=== PATIENT | female | born 1970 | race Caucasian/White ===

== ENCOUNTER → 2017-04-20 | Outpatient (CLI) | payer BC ==
--- NOTE | 2017-04-23 10:40 | MM ---
Reason for exam: screening (asymptomatic). Last mammogram was performed 1 year and 2 months ago. History: Benign right mammotome panel of the right breast, February 10, 2011. Taking estrogen beginning at age 43. Physical Findings: A clinical breast exam by your physician is recommended on an annual basis and results should be correlated with mammographic findings. MG 3D Screening Mammo W/Cad Bilateral CC and MLO view(s) were taken. Prior study comparison: February 08, 2016, bilateral MG 3d screening mammo w/cad. February 05, 2015, bilateral MG screening mammo w CAD. The breast tissue is heterogeneously dense. This may lower the sensitivity of mammography. Previous mammotome biopsy in the right breast. There is no discrete abnormality. ASSESSMENT: Benign, BI-RAD 2 RECOMMENDATION: Routine screening mammogram of both breasts in 1 year.
== END | disposition home or self-care (01) ==
LOC: RADMAMWWP 07:21
PROVIDERS: ATTEND Obstetrics & Gynecology
DX: Z12.31 Encounter for screening mammogram for malignant neoplasm of breast (principal)
CPT/HCPCS: 77063; 77067

== ENCOUNTER → 2018-04-22 | Outpatient (CLI) | payer BC ==
--- NOTE | 2018-04-23 11:21 | MM ---
Reason for exam: screening (asymptomatic). Last mammogram was performed 1 year ago. History: Benign right mammotome panel of the right breast, February 10, 2011. Taking estrogen beginning at age 43. Physical Findings: A clinical breast exam by your physician is recommended on an annual basis and results should be correlated with mammographic findings. MG 3D Screening Mammo W/Cad Bilateral CC and MLO view(s) were taken. Prior study comparison: April 20, 2017, bilateral MG 3d screening mammo w/cad. February 08, 2016, bilateral MG 3d screening mammo w/cad. The breast tissue is heterogeneously dense. This may lower the sensitivity of mammography. Finding: There is a 6 mm indistinct oval mass in the anterior, middle, central position of the right breast on CC 37/68 possibly MLO 41/70. Previous mammotome biopsy in the right breast. There is a chronic nodularity in the right breast. New finding, increase in size, and more defined since April 20, 2017 and February 08, 2016. ASSESSMENT: Incomplete: need additional imaging evaluation, BI-RAD 0 RECOMMENDATION: Special view mammogram of the right breast. If lesion persists on supplemental views, image directed ultrasound is recommended. [facility] will attempt to contact patient to return for supplemental views and ultrasound if indicated.
== END ==
LOC: RADMAMWWP 07:55
PROVIDERS: ATTEND Obstetrics & Gynecology
DX: Z12.31 Encounter for screening mammogram for malignant neoplasm of breast (principal)
CPT/HCPCS: 77063; 77067

== ENCOUNTER → 2018-04-24 | Outpatient (CLI) | payer BC ==
--- NOTE | 2018-04-25 08:27 | MM ---
Reason for exam: additional evaluation requested from abnormal screening. Last mammogram was performed less than 1 month ago. History: Benign right mammotome panel of the right breast, February 10, 2011. Taking estrogen beginning at age 43. Physical Findings: Nurse Summary: nodule in the right breast at 7-8 o'clock (nurse hussain). MG 3D Work Up W/Cad RT Spot compression CC with magnification, spot compression MLO, and ML view(s) were taken of the right breast. Prior study comparison: April 22, 2018, bilateral MG 3d screening mammo w/cad. April 20, 2017, bilateral MG 3d screening mammo w/cad. Finding: There is a 6 mm circumscribed oval mass in the right breast. These results were verbally communicated with the patient and result sheet given to the patient on 04/24/18. ASSESSMENT: Incomplete: need additional imaging evaluation, BI-RAD 0 RECOMMENDATION: Ultrasound of the right breast. (entire lesion, palpable by nurse, dense tissue)
--- NOTE | 2018-04-25 08:29 | USB ---
Reason for exam: additional evaluation requested from abnormal screening. History: Benign right mammotome panel of the right breast, February 10, 2011. Taking estrogen beginning at age 43. US Breast Workup RT Right complete breast ultrasound includes all four quadrants, the retroareolar region and axilla. Finding demonstrates a 4 x 3 x 3mm lesion too small to characterize at 12 o'clock. These results were verbally communicated with the patient and result sheet given to the patient on 04/24/18. ASSESSMENT: Probably benign, BI-RAD 3 RECOMMENDATION: Follow-up diagnostic mammogram and ultrasound of the right breast in 6 months.
== END | disposition home or self-care (01) ==
LOC: RADMAMWWP 12:48
PROVIDERS: ATTEND Obstetrics & Gynecology
DX: R92.8 Other abnormal and inconclusive findings on diagnostic imaging of breast (principal)
CPT/HCPCS: 77061; 77065

== ENCOUNTER → 2018-05-01 | Day surgery (SDC) | payer BC ==
[2018-05-01 13:22] VITALS: RESP 16; TEMP 99.2; BMI 28.9
--- NOTE | 2018-05-01 15:00 | USB ---
EXAMINATION TYPE: US biopsy breast VAD RT, MG diagnostic mammo RT wo CAD DATE OF EXAM: 05/01/2018 CLINICAL HISTORY: N63 Breast Lump mass. TECHNIQUE: Ultrasound guided core biopsy of the right breast. COMPARISON: Exams dating back to 02/08/2016 FINDINGS: The procedure of ultrasound guided core biopsy was explained to the patient. Benefits, alt ernatives, and risks were discussed. An informed consent was then obtained. Preprocedural timeout w as performed. The patient was placed in supine positioning for imaging and for the procedure. The overlying skin wa s prepped and draped in usual sterile fashion. 10 cc of lidocaine buffered with bicarbonate was used as anesthetic into the skin and subcutaneous tissue up to the 0.5 x 0.2 x 0.6 cm mass at the 12:00 po sition in the right breast. Under ultrasound guidance, a 12-gauge vacuum assisted biopsy gun device inserted. After the biopsy de vice was inserted through the mass the cyst collapsed. The biopsy device was used to obtain 3 core sa mples. Following this, a coil-shaped biopsy marker was left at the location of biopsy. Postprocedur al mammograms demonstrate concordant with placement of a mammographic mass. The patient tolerated the procedure well without any immediate complication. The patient was kept in the radiology department for short stay after the procedure and then discharged home in stable condi tion. IMPRESSION: Successful, uncomplicated ultrasound guided core biopsy of a 6 mm mass at the 12:00 posit ion in the right breast with collapse of the mass on biopsy representing a cyst, full pathology resul ts to follow.
[2018-05-01 15:08] VITALS: BP 135/82; PULSE 64
== END ==
LOC: RADUSWWP 13:02
PROVIDERS: ATTEND Internal Medicine
DX: N60.31 Fibrosclerosis of right breast (principal)
CPT/HCPCS: 77065; 19083; A4648; J2001; 88305

== ENCOUNTER → 2019-09-15 | Outpatient (CLI) | payer BC ==
--- NOTE | 2019-09-19 07:56 | MM ---
Reason for exam: additional evaluation requested from prior study. Last mammogram was performed 1 year and 4 months ago. History: Benign US biopsy breast VAD RT of the right breast, May 01, 2018. Benign right mammotome panel of the right breast, February 10, 2011. Taking estrogen beginning at age 43. Physical Findings: Nurse did not find any significant physical abnormalities on exam. MG 3D Diag Mammo W/Cad BETSY Bilateral CC and MLO view(s) were taken. Prior study comparison: May 01, 2018, right breast MG diagnostic mammo RT wo CAD. April 24, 2018, right breast MG 3d work up w/cad RT. There is no discrete abnormality. No significant new findings when compared with previous films. These results were verbally communicated with the patient and result sheet given to the patient on 09/15/19. ASSESSMENT: Benign, BI-RAD 2 RECOMMENDATION: Routine screening mammogram of both breasts in 1 year.
--- NOTE | 2019-09-19 07:57 | USB ---
Reason for exam: follow-up at short interval from prior study. History: Benign US biopsy breast VAD RT of the right breast, May 01, 2018. Benign right mammotome panel of the right breast, February 10, 2011. Taking estrogen beginning at age 43. US Breast RT Right complete breast ultrasound includes all four quadrants, the retroareolar region and axilla. Finding demonstrates a 2 x 2 x 3mm cystic lesion at 2 o'clock. These results were verbally communicated with the patient and result sheet given to the patient on 09/15/19. ASSESSMENT: Benign, BI-RAD 2 RECOMMENDATION: Routine screening mammogram of both breasts in 1 year.
== END | disposition home or self-care (01) ==
LOC: RADMAMWWP 07:04
PROVIDERS: ATTEND Obstetrics & Gynecology
DX: R92.8 Other abnormal and inconclusive findings on diagnostic imaging of breast (principal)
CPT/HCPCS: 77062; 77066

== ENCOUNTER → 2021-02-11 | Outpatient (CLI) | payer BC ==
[2021-02-11 10:26] LABS: HCT 39.6 % (37.2-46.3); MCH 29.7 pg (27.0-32.0); MCHC 32.8 g/dL (32.0-37.0); MCV 90.6 fL (80.0-97.0); Mean Platelet Volume 11.5 fL (9.5-12.2); Platelet Count 236 X 10*3/uL (140-440); RBC 4.37 X 10*6/uL (4.10-5.20); RDW 12.5 % (11.5-14.5); WBC 9.93 X 10*3/uL (4.50-10.00)
[2021-02-11 11:19] LABS: ALT 26 U/L (8-44); AST 22 U/L (13-35); African American GFR (CKD) 108.8 (60.0-200.0); Albumin 4.4 g/dL (3.8-4.9); Albumin/Globulin Ratio 1.81 (1.60-3.17); Alkaline Phosphatase 89 U/L (41-126); BUN/Creat Ratio 11.05 Ratio (12.00-20.00); Blood Urea Nitrogen 8.2 mg/dL (9.0-27.0); Calcium 9.7 mg/dL (8.7-10.3); Chloride 100 mmol/L (96-109); Chol/HDL Ratio 4.07 Ratio; Globulin 2.4 g/dL (1.6-3.3); Glucose 154 mg/dL (70-110); LDL Cholesterol,Calculated 106.4 mg/dL (0.0-131.0); Non-African American GFR(CKD) 93.9 (60.0-200.0); Potassium 4.6 mmol/L (3.5-5.5); Sodium 137 mmol/L (135-145); Total Protein 6.8 g/dL (6.2-8.2); VLDL Calculation 15.76 mg/dL (5.00-40.00)
== END | disposition home or self-care (01) ==
LOC: LABWHC1 08:15
PROVIDERS: ATTEND Internal Medicine
DX: Z00.00 Encounter for general adult medical examination without abnormal findings (principal); E11.9 Type 2 diabetes mellitus without complications; E03.9 Hypothyroidism, unspecified
CPT/HCPCS: 36415; 80053; 80061; 83036; 84443; 85027

== ENCOUNTER → 2021-03-17 | Outpatient (CLI) | payer BC ==
--- NOTE | 2021-03-18 10:58 | MM ---
Reason for exam: screening (asymptomatic). Last mammogram was performed 1 year and 6 months ago. History: Benign US biopsy breast VAD RT of the right breast, May 01, 2018. Benign right mammotome panel of the right breast, February 10, 2011. Taking estrogen beginning at age 43. Physical Findings: A clinical breast exam by your physician is recommended on an annual basis and results should be correlated with mammographic findings. MG 3D Screening Mammo W/Cad Bilateral CC and MLO view(s) were taken. XCCL view(s) were taken of the right breast. Prior study comparison: September 15, 2019, bilateral MG 3d diag mammo w/cad BETSY. May 01, 2018, right breast MG diagnostic mammo RT wo CAD. The breast tissue is heterogeneously dense. This may lower the sensitivity of mammography. Previous mammotome biopsy in the right breast. No significant changes when compared with prior studies. ASSESSMENT: Benign, BI-RAD 2 RECOMMENDATION: Routine screening mammogram of both breasts in 1 year.
== END | disposition home or self-care (01) ==
LOC: RADMAMWWP 16:41
PROVIDERS: ATTEND Obstetrics & Gynecology
DX: Z12.31 Encounter for screening mammogram for malignant neoplasm of breast (principal)
CPT/HCPCS: 77063; 77067

== ENCOUNTER → 2021-06-01 | Outpatient (CLI) | payer BC ==
[2021-06-01 14:40] LABS: HCT 39.1 % (37.2-46.3); HGB 12.7 g/dL (12.0-15.0); MCH 29.3 pg (27.0-32.0); MCHC 32.5 g/dL (32.0-37.0); MCV 90.3 fL (80.0-97.0); Mean Platelet Volume 12.1 fL (9.5-12.2); NRBC Per 100 WBC 0 /100 WBCS (0.0-0.0); Platelet Count 222 X 10*3/uL (140-440); RBC 4.33 X 10*6/uL (4.10-5.20); RDW 12.5 % (11.5-14.5); WBC 7.25 X 10*3/uL (4.50-10.00)
[2021-06-01 15:00] LABS: ALT 30 U/L (8-44); AST 25 U/L (13-35); Albumin 4.3 g/dL (3.8-4.9); Albumin/Globulin Ratio 1.62 (1.60-3.17); Alkaline Phosphatase 83 U/L (41-126); BUN/Creat Ratio 16.87 Ratio (12.00-20.00); Blood Urea Nitrogen 11.3 mg/dL (9.0-27.0); Calcium 9.7 mg/dL (8.7-10.3); Carbon Dioxide 22.6 mmol/L (20.0-27.5); Chloride 103 mmol/L (96-109); Chol/HDL Ratio 4.01 Ratio; Globulin 2.7 g/dL (1.6-3.3); Glucose 106 mg/dL (70-110); LDL Cholesterol,Calculated 114.8 mg/dL (0.0-131.0); Non-African American GFR(CKD) 101.8 (60.0-200.0); Potassium 4.3 mmol/L (3.5-5.5); Sodium 139 mmol/L (135-145); Total Protein 6.9 g/dL (6.2-8.2); VLDL Calculation 12.12 mg/dL (5.00-40.00)
[2021-06-01 21:41] LABS: Urine Creatinine 38.4 mg/dL (28.0-217.0)
== END | disposition home or self-care (01) ==
LOC: LABWHC1 08:22
PROVIDERS: ATTEND Internal Medicine
DX: E11.9 Type 2 diabetes mellitus without complications (principal); E03.9 Hypothyroidism, unspecified
CPT/HCPCS: 36415; 80053; 80061; 82043; 82570; 83036; 84443; 85027

== ENCOUNTER → 2022-05-30 | Outpatient (CLI) | payer BC ==
--- NOTE | 2022-05-31 07:49 | MM ---
Reason for Exam: Screening (asymptomatic). Last mammogram was performed 1 year(s) and 3 month(s) ago. Patient History: Menarche at age 13. First Full-Term at age 29. Perimenopausal. 05/01/2018, Benign Core Biopsy on the right side. 02/10/2011, Benign Core Biopsy on the right side. Risk Values: Madelyn 5 year model risk: 1.8%. NCI Lifetime model risk: 14.0%. Prior Study Comparison: 05/01/2018 Right Diagnostic Mammogram, [facility]. 09/15/2019 Bilateral Diagnostic Mammogram, [facility]. 03/17/2021 Bilateral Screening Mammogram, [facility]. Tissue Density: The breast tissue is heterogeneously dense. This may lower the sensitivity of mammography. Findings: Analyzed By CAD. There is no suspicious group of microcalcifications or new suspicious mass in either breast. Biopsy clip within the right breast. Overall Assessment: Benign, BI-RAD 2 Management: Screening Mammogram of both breasts in 1 year. A clinical breast exam by your physician is recommended on an annual basis and results should be correlated with mammographic findings. Electronically signed and approved by: Azam May D.O.
== END | disposition home or self-care (01) ==
LOC: RADMAMWWP 16:54
PROVIDERS: ATTEND Obstetrics & Gynecology
DX: Z12.31 Encounter for screening mammogram for malignant neoplasm of breast (principal)
CPT/HCPCS: 77063; 77067

== ENCOUNTER 2022-09-26 06:02 | Day surgery (SDC) | payer BC ==
[~2022-09-26 06:02] MED LIST: LACTATED RINGERS 1,000 ML IV SCH
[2022-09-26] MEDS ORDERED: LACTATED RINGERS 1,000 ML IV ONE (06:15)
[2022-09-26 06:34] LABS: Glucose,Whole Blood 97 mg/dL (70-110)
[2022-09-26 06:36] VITALS: TEMP 97.5
[2022-09-26] MEDS ORDERED: PROPOFOL 10 MG/ML 20 ML VIAL IV ONE (07:00)
--- NOTE | 2022-09-26 07:27 | P.PCN ---
Date of Procedure: 09/26/22 Procedure(s) Performed: BRIEF HISTORY: Patient is a 52-year-old pleasant female scheduled for an elective colonoscopy as a part of screening for colon cancer. PROCEDURE PERFORMED: Colonoscopy. PREOPERATIVE DIAGNOSIS: Screening for colon cancer. IV sedation per Anesthesia. PROCEDURE: After informed consent was obtained, the patient, was brought into the endoscopy unit. IV sedation was administered by Anesthesia under continuous monitoring. Digital rectal examination was normal. Initially the Olympus CF-160 flexible video colonoscope was then inserted in the rectum, gradually advanced into the cecum without any difficulty. Careful examination was performed as the scope was gradually being withdrawn. Ileocecal valve and the appendiceal orifice were visualized and appeared normal. Prep was excellent. Mucosa of the cecum, ascending colon, transverse colon, descending colon, sigmoid colon, and rectum appeared normal. Retroflexion was performed in the rectum and no lesions were seen. The patient tolerated the procedure well. IMPRESSION: Normal-appearing colon from rectum to cecum with no evidence of colorectal neoplasia . RECOMMENDATIONS: Findings of this examination were discussed with the patient as well as a family. She was advised to have a repeat screening colonoscopy in 10 years.
[2022-09-26 07:44] VITALS: BP 118/78; PULSE 79; RESP 16
== END 2022-09-26 08:14 | disposition home or self-care (01) ==
LOC: ORWHC2ENDO 06:02
PROVIDERS: ATTEND Internal Medicine Gastroenterology
DX: Z12.11 Encounter for screening for malignant neoplasm of colon (principal); E11.9 Type 2 diabetes mellitus without complications; E07.9 Disorder of thyroid, unspecified; Z79.899 Other long term (current) drug therapy
CPT/HCPCS: 45378; 81025; J2704

== ENCOUNTER → 2022-12-22 | Outpatient (CLI) | payer BC ==
[2022-12-22 11:36] LABS: Chol/HDL Ratio 3.57 Ratio; T4, Free (Free Thyroxine) 1.57 ng/dL (0.80-1.80); VLDL Calculation 13.02 mg/dL (5.00-40.00)
== END | disposition home or self-care (01) ==
LOC: LABWHC1 07:06
PROVIDERS: ATTEND Internal Medicine Geriatric Medicine
DX: E11.9 Type 2 diabetes mellitus without complications (principal); E03.9 Hypothyroidism, unspecified
CPT/HCPCS: 36415; 80053; 80061; 83036; 84439; 84443

== ENCOUNTER → 2023-01-15 | Outpatient (CLI) | payer BC ==
[2023-01-15 12:31] LABS: ALT 21 U/L (8-44); AST 24 U/L (13-35); Albumin 4.5 g/dL (3.8-4.9); Alkaline Phosphatase 73 U/L (41-126); BUN/Creat Ratio 15.62 Ratio (12.00-20.00); Blood Urea Nitrogen 12.5 mg/dL (9.0-27.0); Calcium 9.9 mg/dL (8.7-10.3); Carbon Dioxide 26.2 mmol/L (21.6-31.8); Chloride 103 mmol/L (96-109); Globulin 2.5 g/dL (1.6-3.3); Glucose 105 mg/dL (70-110); Potassium 4.8 mmol/L (3.5-5.5); Sodium 140 mmol/L (135-145); Total Bilirubin 0.2 mg/dL (0.3-1.2)
== END | disposition home or self-care (01) ==
LOC: LABWHC1 07:06
PROVIDERS: ATTEND Internal Medicine Geriatric Medicine
DX: E11.9 Type 2 diabetes mellitus without complications (principal); E03.9 Hypothyroidism, unspecified
CPT/HCPCS: 36415; 80053

== ENCOUNTER → 2023-12-11 | Outpatient (CLI) | payer BC ==
--- NOTE | 2023-12-12 11:03 | MM ---
Reason for Exam: Screening (asymptomatic). Last mammogram was performed 1 year(s) and 6 month(s) ago. Patient History: Menarche at age 13. First Full-Term at age 29. Perimenopausal. 05/01/2018, Benign Core Biopsy on the right side. 02/10/2011, Benign Core Biopsy on the right side. Risk Values: Madelyn 5 year model risk: 1.8%. NCI Lifetime model risk: 13.8%. Prior Study Comparison: 09/15/2019 Bilateral Diagnostic Mammogram, [facility]. 03/17/2021 Bilateral Screening Mammogram, [facility]. 05/30/2022 Bilateral MG 3D screening mammo w/cad, [facility]. Tissue Density: The breasts are heterogeneously dense, which may obscure small masses. Findings: Analyzed By CAD. There is no suspicious group of microcalcifications or new suspicious mass in either breast. Overall Assessment: Negative, BI-RAD 1 Management: Screening Mammogram of both breasts in 1 year. . Patient should continue monthly self-breast exams. A clinical breast exam by your physician is recommended on an annual basis. This exam should not preclude additional follow-up of suspicious palpable abnormalities. Note on Madelyn scores and lifetime risk: 1. A Madelyn score greater than 3% is considered moderate risk. If this is the case, consider specialist referral to assess eligibility for a risk reducing agent. 2. If overall lifetime risk for the development of breast cancer is 20% or higher, the patient may qualify for future screening with alternating mammogram and breast MRI. [facility], , 12/12/2023 11:00 AM. Electronically signed and approved by: Ayad Valverde M.D. Radiolog[facility]
== END | disposition home or self-care (01) ==
LOC: RADMAMWWP 16:48
PROVIDERS: ATTEND Obstetrics & Gynecology
CPT/HCPCS: 77063; 77067